=== PATIENT | male | born 1995 | race Caucasian/White ===

== ENCOUNTER 2017-11-01 21:19 | Emergency (ER) | payer SELFPAY ==
[~2017-11-01] VITALS: Ht 185.4 cm; Wt 100.0 kg
[2017-11-01 21:38] VITALS: Ht 185.4 cm; Wt 100.0 kg
[2017-11-02] MEDS ORDERED: DEBROX OTIC15 ML RIGHT EAR (00:33)
[2017-11-02] MEDS ORDERED: CORTISPORIN OTI10 M1 EACH EAR (00:34)
[2017-11-02 00:46] VITALS: BP 132/84
== END 2017-11-02 00:47 | disposition home or self-care (01) ==
LOC: D.ER 21:19
DX: H60.91 Unspecified otitis externa, right ear (principal); H61.21 Impacted cerumen, right ear